=== PATIENT | female | born 1990 | race Caucasian/White ===

== ENCOUNTER → 2017-01-01 | Outpatient (CLI) | payer OTHER ==
[~2017-01-01] MED LIST: CETI10TA84 PO; CRAN200C PO; ESTRADIOL PO; FINA5TAB PO; MISCCAP80 PO; MISCTAB26 PO; MULT-506 PO; OMEP40CA PO; SERT-234 PO; SPRN100 PO; [UNRECOGNIZED DRUG - OTHER] PO
--- NOTE | 2017-01-02 08:42 | DIAGNOSTIC IMAGING REPORT ---
CT OF THE LEFT ANKLE WITHOUT CONTRAST CT DOSE: 209.86 mGy.cm CLINICAL HISTORY: Evaluate for healing of lateral talus fracture. TECHNIQUE: Axial images of the left ankle were obtained without IV contrast. Sagittal and coronal reconstructions were viewed. COMPARISON STUDY: Left ankle and foot radiographs August 07, 2016. FINDINGS: There are postsurgical findings consistent with internal fixation of the talar neck fracture. [address] screws are in place. The hardware is intact. No fracture line is evident. There has been interval healing of the talar neck fracture. There is subtle band of sclerosis at the site of the fracture. No acute fractures identified on this exam. Talar dome is intact. 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 Subtalar joint is anatomically aligned. There are a few tiny bone fragments adjacent to the talus which are old. Tarsometatarsal joints are anatomically aligned. There are no unexpected radiopaque foreign bodies. IMPRESSION: 1. Status post internal fixation of the talar neck fracture. Interval healing of the talar neck fracture with subtle band of sclerosis at fracture site. Intact hardware. 2. Several tiny bone fragments adjacent to the talus which are posttraumatic and old. 3. 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 Electronically signed by: Osman Sheridan M.D. 01/02/2017 8:40 AM Dictated Date/Time: 01/01/2017 2:43 PM
== END | disposition home or self-care (01) ==
LOC: C.CTS 14:13
PROVIDERS: ATTEND Orthopaedic Surgery Sports Medicine
DX: M25.572 Pain in left ankle and joints of left foot (principal)

== ENCOUNTER → 2017-02-04 | Outpatient (CLI) | payer OTHER ==
[2017-02-04 09:41] LABS: HEMATOCRIT 37.1 % (37-47); MEAN CELL VOLUME 87.5 fL (80-100); MEAN CORPUSCULAR HEMOGLOBIN 31.1 pg (25-34); MEAN CORPUSCULAR HGB CONC 35.6 g/dl (32-36); MEAN PLATELET VOLUME 10.9 fL (7.4-10.4); PLATELET COUNT 243 K/uL (130-400); RED BLOOD COUNT 4.24 M/uL (4.2-5.4); WHITE BLOOD COUNT 9.85 K/uL (4.8-10.8)
[2017-02-04 09:56] LABS: ALT/SGPT 25 U/L (12-78); BLOOD UREA NITROGEN 11 mg/dl (7-18); BUN/CREATININE RATIO 11.6 (10-20); CALCIUM 9.1 mg/dl (8.5-10.1); CARBON DIOXIDE 29 mmol/L (21-32); CHLORIDE 105 mmol/L (98-107); CREATININE 0.95 mg/dl (0.60-1.20); GLUCOSE 73 mg/dl (70-99); POTASSIUM 3.4 mmol/L (3.5-5.1); SODIUM 142 mmol/L (136-145)
[2017-02-04 10:07] LABS: ALB/GLOB RATIO 1.2 (0.9-2); ALKALINE PHOSPHATASE 71 U/L (45-117); AST/SGOT 18 U/L (15-37)
== END | disposition home or self-care (01) ==
LOC: C.LAB 06:53
PROVIDERS: ATTEND Internal Medicine Endocrinology, Diabetes & Metabolism
DX: F64.0 Transsexualism (principal); R53.83 Other fatigue

== ENCOUNTER → 2017-02-17 | Outpatient (CLI) | payer OTHER ==
[2017-02-17 10:08] LABS: POTASSIUM 3.6 mmol/L (3.5-5.1)
[2017-02-17 10:31] LABS: CHOLESTEROL 138 mg/dl (0-200); CHOLESTEROL/HDL RATIO 4.2; HDL CHOLESTEROL 33 mg/dl; MAGNESIUM 1.9 mg/dl (1.8-2.4); TRIGLYCERIDES 128 mg/dl (0-150); VERY LOW DENSITY LIPOPROT CALC 26 mg/dl
[2017-02-20 00:31] LABS: GLIADIN DEAMIDATED IgA AB 4 UNITS (<20); GLIADIN DEAMIDATED IgG AB 2 UNITS (<20); MICROSOMAL AB <1 IU/ML (<9); SEX HORMONE BINDING GLOB 20 NMOL/L (17-124)
== END | disposition home or self-care (01) ==
LOC: C.LAB 07:42
PROVIDERS: ATTEND Internal Medicine Endocrinology, Diabetes & Metabolism
DX: E88.81 Metabolic syndrome and other insulin resistance (principal); E03.9 Hypothyroidism, unspecified

== ENCOUNTER → 2017-06-01 | Outpatient (CLI) | payer OTHER ==
[2017-06-01 09:51] LABS: POTASSIUM 3.7 mmol/L (3.5-5.1)
[2017-06-01 10:09] LABS: MAGNESIUM 1.8 mg/dl (1.8-2.4); THYROID STIMULATING HORMONE 0.687 uIu/ml (0.300-4.500)
[2017-06-03 21:43] LABS: GLIADIN DEAMIDATED IgA AB 5 UNITS (<20); GLIADIN DEAMIDATED IgG AB 3 UNITS (<20); MICROSOMAL AB <1 IU/ML (<9); SEX HORMONE BINDING GLOB 61 NMOL/L (17-124)
== END | disposition home or self-care (01) ==
LOC: C.LAB 07:10
PROVIDERS: ATTEND Internal Medicine Endocrinology, Diabetes & Metabolism
DX: E88.81 Metabolic syndrome and other insulin resistance (principal); E03.9 Hypothyroidism, unspecified

== ENCOUNTER → 2017-06-21 | Outpatient (CLI) | payer OTHER ==
[2017-06-21 13:26] LABS: CHOLESTEROL/HDL RATIO 4.6
== END | disposition home or self-care (01) ==
LOC: C.LAB 11:56
PROVIDERS: ATTEND Internal Medicine Endocrinology, Diabetes & Metabolism
DX: E88.81 Metabolic syndrome and other insulin resistance (principal); E03.9 Hypothyroidism, unspecified